=== PATIENT | female | born 1965 | race Caucasian/White ===

== ENCOUNTER 2022-09-29 15:32 | Outpatient (CLI) | payer BC, SELFPAY | END 2022-09-29 15:33 | disposition home or self-care (01) | LOC: NFLDREF 10-02 04:53 | PROVIDERS: PCP Family Medicine; Referring Provider Family Medicine; Visit Provider Student in an Organized Health Care Education/Training Program | DX: R30.0 Dysuria (principal); N39.0 Urinary tract infection, site not specified; R39.9 Unspecified symptoms and signs involving the genitourinary system | CPT/HCPCS: 87086 ==

== ENCOUNTER 2022-12-01 14:15 | Outpatient (CLI) | payer BC, SELFPAY | END 2022-12-01 14:16 | disposition home or self-care (01) | PROVIDERS: PCP Family Medicine; Visit Provider Family Medicine | DX: E78.00 Pure hypercholesterolemia, unspecified (principal); I10 Essential (primary) hypertension | CPT/HCPCS: 80053; 80061 ==

== ENCOUNTER 2023-08-30 07:59 | Outpatient (CLI) | payer BC, SELFPAY | END 2023-08-30 08:00 | disposition home or self-care (01) | LOC: NFLDREF 09-01 11:25 | PROVIDERS: PCP Family Medicine; Referring Provider Family Medicine; Visit Provider Family Medicine | DX: E78.00 Pure hypercholesterolemia, unspecified (principal) | CPT/HCPCS: 80061 ==

== ENCOUNTER 2023-12-21 08:00 | Outpatient (CLI) | payer BC, SELFPAY | END 2023-12-21 08:01 | disposition home or self-care (01) | LOC: NFLDREF 12-22 08:43 | PROVIDERS: PCP Family Medicine; Referring Provider Family Medicine; Visit Provider Family Medicine | DX: E78.00 Pure hypercholesterolemia, unspecified (principal) | CPT/HCPCS: 80061; 80076 ==

== ENCOUNTER 2024-03-22 08:09 | Outpatient (CLI) | payer BC, SELFPAY | END 2024-03-22 08:10 | disposition home or self-care (01) | LOC: NFLDREF 03-24 09:34 | PROVIDERS: PCP Family Medicine; Referring Provider Family Medicine; Visit Provider Family Medicine | DX: E78.00 Pure hypercholesterolemia, unspecified (principal); I10 Essential (primary) hypertension; Z13.1 Encounter for screening for diabetes mellitus | CPT/HCPCS: 80053; 80061 ==